=== PATIENT | male | born 1950 | race Caucasian/White ===

== ENCOUNTER → 2016-08-31 | Outpatient (CLI) | payer OTHER ==
[~2016-08-31] MED LIST: ACYC-57 PO; AMIT10TA PO; AMITR PO; ATOR10TA9 PO; CHOL20002 PO; CIPR500T3 PO; DIME240C PO; DIPH25CA61 PO; FERR325T23 PO; FLUO10CA7 PO; FLUT16SP NAS; FLUT1DIS3 INH; FURO-93 PO; GABA300C10 PO; GADOBUTROL 10 MMOL/10 ML PFS ONE; INTE44DI SQ; IPRA3AMP INH; LEVO250T8 PO; LOSA1TAB18 PO; METH750T87 PO; METO25TA35 PO; MULT-717 PO; OLME40TA PO; OXYC10TA6 PO; OXYC1TAB9 PO; OXYC5TAB2 PO; POTA20PA PO; SULF1TAB24 PO; TAMS-11 PO; TAMS0.4C2 PO
== END | disposition home or self-care (01) ==
LOC: RAD 12:09
PROVIDERS: ATTEND Psychiatry & Neurology Neurology
DX: G93.89 Other specified disorders of brain (principal); R90.82 White matter disease, unspecified; J32.0 Chronic maxillary sinusitis
CPT/HCPCS: 70553; A9585

== ENCOUNTER → 2017-05-31 | Outpatient (CLI) | payer MEDICARE, OTHER ==
[~2017-05-31] MED LIST changes: -GADOBUTROL 10 MMOL/10 ML PFS ONE; -LOSA1TAB18 PO; +LOSA1TAB25 PO; -OLME40TA PO; +OLME40TA12 PO
== END ==
LOC: CARD 12:42
PROVIDERS: ATTEND Psychiatry & Neurology Neurology
DX: G40.209 Localization-related (focal) (partial) symptomatic epilepsy and epileptic syndromes with complex partial seizures, not intractable, without status epilepticus (principal)
CPT/HCPCS: 95819